=== PATIENT | female | born 1960 | race Caucasian/White ===

== ENCOUNTER 2020-06-07 09:32 | Observation (INO) ==
[2020-06-07 10:15] LABS: Basophils # 0.1 K/mcL (0.0-0.2); Basophils % 0.6 %; Eosinophils # 0.1 K/mcL (0.0-0.6); Eosinophils % 1.2 %; Hematocrit 34.3 % (35.3-44.9); Hemoglobin 10.9 g/dL (11.5-15.4); Immature Granulocytes % 0.5 % (0-4); Lymphocytes # 0.9 K/mcL (0.6-4.6); Lymphocytes % 7.2 %; Mean Corpuscular HGB Conc 31.8 g/dL (31.6-35.5); Mean Corpuscular Hemoglobin 30.2 pg (28.0-33.3); Mean Platelet Volume 10.9 fL (9.4-12.4); Monocytes # 1.2 K/mcL (0.0-1.3); Neutrophils # 9.7 K/mcL (1.6-8.9); Platelet Count 371 K/mcL (140-400); Red Blood Count 3.61 M/mcL (3.82-4.97); Segmented Neutrophils % 80.5 %; White Blood Count 12.1 K/mcL (4.3-11.1)
[2020-06-07 10:31] LABS: BUN/Creatinine Ratio 16 (6-26); Blood Urea Nitrogen 24 mg/dL (8-23); Calcium 8.4 mg/dL (8.6-10.3); Carbon Dioxide 23 mEq/L (23-29); Chloride 102 mEq/L (98-107); Glucose 115 mg/dL (70-105); Osmolality,Calculated 287 (280-300); Sodium 136 mEq/L (136-145); Troponin I < 0.03 ng/mL (< 0.04); eGFR For African Americans 42 (> 60); eGFR For Non-African Americans 34 (> 60)
[2020-06-07] MEDS ORDERED: Isovue-370 500 ML BOTTLE IVP ONE (10:37)
[2020-06-07] MEDS ORDERED: Ipratropium/Albuterol Neb 3 ML IH ONE (11:18)
[2020-06-07] MEDS ORDERED: 0.9 % Sodium Chloride 500 ML IVC ONE (12:34)
[2020-06-07] MEDS ORDERED: Furosemide 40 MG/4 ML VIAL IVP ONE (14:38)
[2020-06-07 14:58] LABS: Alanine Aminotransferase 67 Units/L (7-52); Albumin 4.1 g/dL (3.5-5.7); Albumin/Globulin Ratio 1.2 (1.1-2.2); Alkaline Phosphatase 257 Units/L (34-104); Aspartate Amino Transferase 62 Units/L (13-39); Bilirubin,Direct 0.3 mg/dL (0.0-0.2); Bilirubin,Indirect 0.6 mg/dL (0.0-1.0); Bilirubin,Total 0.9 mg/dL (0.3-1.0); Globulin 3.5 g/dL (2.4-3.5); Lipase 8 Units/L (11-82); Total Protein 7.6 g/dL (6.4-8.9)
[2020-06-07] MEDS ORDERED: *HR* HYDROcodone/Acet 5/325 mg TABLET PO PRN (15:27)
[2020-06-07] MEDS ORDERED: Ondansetron 4 MG/2 ML VIAL IVP PRN (15:27)
[2020-06-07] MEDS ORDERED: Naloxone 0.4 MG/ML INJ IVP PRN (15:27)
[2020-06-07] MEDS ORDERED: Ipratropium/Albuterol Neb 3 ML IH PRN (15:30)
[2020-06-07] MEDS ORDERED: Perflutren Lipid Microsphere 1.3 ML in 0.9 % Sodium Chloride 8.7 ML IVP PRN (16:38)
[2020-06-07 17:46] LABS: Adenovirus Not Detected (Not Detect); Bordetella Pertussis Not Detected (Not Detect); Chlamydophila pneumoniae Not Detected (Not Detect); Coronavirus 229E Not Detected (Not Detect); Coronavirus HKU1 Not Detected (Not Detect); Coronavirus NL63 Not Detected (Not Detect); Coronavirus OC43 Not Detected (Not Detect); Human Metapneumovirus Not Detected (Not Detect); Human Rhinovirus/Enterovirus Not Detected (Not Detect); Influenza A Subtype 2009 H1 Not Detected (Not Detect); Influenza B Not Detected (Not Detect); Mycoplasma pneumoniae Not Detected (Not Detect); Parainfluenza Virus 1 Not Detected (Not Detect); Parainfluenza Virus 2 Not Detected (Not Detect); Parainfluenza Virus 3 Not Detected (Not Detect); Parainfluenza Virus 4 Not Detected (Not Detect); Respiratory Syncytial Virus Not Detected (Not Detect); SARS-CoV-2 Not Detected (Not Detect)
[2020-06-07] MEDS: Acetaminophen 325 MG TABLET PO PRN (19:11)
[2020-06-07] MEDS: Furosemide 20 MG/2 ML VIAL IVP SCH (20:23)
[2020-06-07] MEDS ORDERED: Anastrozole 1 MG TABLET PO SCH (21:00)
[2020-06-08] MEDS: Acetaminophen 325 MG TABLET PO PRN (02:13)
[2020-06-08 06:41] VITALS: BP 155/67
[2020-06-08 07:10] LABS: Basophils # 0.1 K/mcL (0.0-0.2); Basophils % 0.7 %; Eosinophils # 0.4 K/mcL (0.0-0.6); Eosinophils % 3.5 %; Hemoglobin 10.9 g/dL (11.5-15.4); Immature Granulocytes % 0.4 % (0-4); Lymphocytes # 1.6 K/mcL (0.6-4.6); Lymphocytes % 14.6 %; Mean Corpuscular HGB Conc 32.1 g/dL (31.6-35.5); Mean Corpuscular Hemoglobin 30.4 pg (28.0-33.3); Mean Corpuscular Volume 94.7 fL (83.0-100.0); Mean Platelet Volume 11.3 fL (9.4-12.4); Monocytes # 1.9 K/mcL (0.0-1.3); Monocytes % 17.1 %; Platelet Count 367 K/mcL (140-400); Red Blood Count 3.59 M/mcL (3.82-4.97); Segmented Neutrophils % 63.7 %
[2020-06-08] MEDS: Furosemide 20 MG/2 ML VIAL IVP SCH (07:46)
[2020-06-08 07:57] LABS: Calcium 8.8 mg/dL (8.6-10.3); Magnesium 1.9 mg/dL (1.6-2.6); Phosphorous 4.4 mg/dL (2.7-4.5); Potassium 4.3 mEq/L (3.5-5.1)
[2020-06-08] MEDS ORDERED: ALPRAZolam 0.5 MG TABLET PO PRN (08:28)
[2020-06-08] MEDS ORDERED: Albumin 25% 25gram/100mL 25 GM/100 ML IV.SOLN IVPB ONE (08:29)
[2020-06-08] MEDS ORDERED: Aspirin Enteric Coated 81 MG Tablet PO SCH (09:00)
[2020-06-08] MEDS ORDERED: PARoxetine 20 MG TABLET PO SCH (09:00)
[2020-06-08] MEDS ORDERED: Metoprolol XL (24 HR) Succ 50 MG TAB.ER.24H PO SCH (09:00)
== END 2020-06-08 11:54 | disposition home or self-care (01) ==
LOC: EMEROOARM 09:32 → 3BNU 09:32 → SUATTDRO 15:51 → 3BNU 16:45
PROVIDERS: ADMIT Internal Medicine; ATTEND Internal Medicine

== ENCOUNTER 2020-07-12 06:21 | Observation (INO) ==
[2020-07-12] MEDS ORDERED: *HR* Atropine Sulfate 1 MG/10 ML SYRINGE IV ONE ×2 (06:22→15:43)
[2020-07-12] MEDS ORDERED: 0.9 % Sodium Chloride 1,000 ML ONE ×2 (07:00→07:10)
[2020-07-12] MEDS ORDERED: Heparin 1,000 UNITS/500 mL 500 ML ONE (07:10)
[2020-07-12] MEDS ORDERED: Nitroglycerin 1,000 MCG/5 ML VIAL IV ONE (07:10)
[2020-07-12] MEDS ORDERED: *HR* Heparin 10,000 UNIT/10 ML VIAL ONE (07:10)
[2020-07-12] MEDS ORDERED: ISOVUE-370 200 ML INFUS..BTL ONE (07:10)
[2020-07-12] MEDS ORDERED: *HR* FentaNYL (PF) 100 MCG/2 ML VIAL ONE (07:45)
[2020-07-12] MEDS ORDERED: *HR* Midazolam HCl 2 MG/2 ML VIAL ONE (07:45)
[2020-07-12] MEDS ORDERED: Naloxone 0.4 MG/ML INJ IVP PRN (14:13)
[2020-07-12] MEDS ORDERED: hydroCHLOROthiazide 25 MG TABLET PO PRN (14:17)
[2020-07-12] MEDS ORDERED: ALPRAZolam 0.5 MG TABLET PO PRN (14:17)
[2020-07-12] MEDS: Pantoprazole 40 MG VIAL IVP SCH (15:21)
[2020-07-12] MEDS ORDERED: GI Cocktail 40 ML EACH PO ONE (15:28)
[2020-07-12] MEDS ORDERED: *HR* EPINEPHrine 1 MG/10 ML SYRINGE IVP ONE (15:43)
[2020-07-12] MEDS: Anastrozole 1 MG TABLET PO SCH (17:23)
[2020-07-12 18:09] LABS: Basophils # 0.1 K/mcL (0.0-0.2); Basophils % 0.5 %; Eosinophils # 0.1 K/mcL (0.0-0.6); Eosinophils % 0.4 %; Hematocrit 36.5 % (35.3-44.9); Hemoglobin 11.3 g/dL (11.5-15.4); Immature Granulocytes % 0.2 % (0-4); Lymphocytes % 8.5 %; Mean Corpuscular Hemoglobin 30.3 pg (28.0-33.3); Mean Corpuscular Volume 97.9 fL (83.0-100.0); Mean Platelet Volume 11.7 fL (9.4-12.4); Monocytes # 0.9 K/mcL (0.0-1.3); Monocytes % 7.3 %; Platelet Count 316 K/mcL (140-400); Red Blood Count 3.73 M/mcL (3.82-4.97); Red Cell Distribution Width 15.8 % (11.5-14.5); Segmented Neutrophils % 83.1 %
[2020-07-12 18:30] LABS: Calcium 7.8 mg/dL (8.6-10.3); Potassium 5.2 mEq/L (3.5-5.1)
[2020-07-12 18:43] LABS: Thyroid Stimulating Hormone 13.436 mcIU/mL (0.340-5.600)
[2020-07-13 02:15] LABS: Basophils # 0.1 K/mcL (0.0-0.2); Basophils % 0.5 %; Eosinophils # 0.1 K/mcL (0.0-0.6); Hematocrit 35.2 % (35.3-44.9); Hemoglobin 11.1 g/dL (11.5-15.4); Immature Granulocytes % 0.2 % (0-4); Lymphocytes # 1.9 K/mcL (0.6-4.6); Lymphocytes % 15.3 %; Mean Corpuscular HGB Conc 31.5 g/dL (31.6-35.5); Mean Corpuscular Hemoglobin 30.7 pg (28.0-33.3); Mean Corpuscular Volume 97.5 fL (83.0-100.0); Mean Platelet Volume 12.3 fL (9.4-12.4); Monocytes # 1.2 K/mcL (0.0-1.3); Monocytes % 9.9 %; Neutrophils # 9.1 K/mcL (1.6-8.9); Platelet Count 313 K/mcL (140-400); Red Blood Count 3.61 M/mcL (3.82-4.97); Red Cell Distribution Width 15.8 % (11.5-14.5); Segmented Neutrophils % 73.1 %; White Blood Count 12.5 K/mcL (4.3-11.1)
[2020-07-13 02:34] LABS: Calcium 8.2 mg/dL (8.6-10.3)
[2020-07-13] MEDS: Cholecalciferol (D-3) 1,000 UNIT (25MCG) TABLET PO SCH (08:56)
[2020-07-13] MEDS: Aspirin Enteric Coated 81 MG Tablet PO SCH (08:57)
[2020-07-13] MEDS: PARoxetine 20 MG TABLET PO SCH (08:57)
[2020-07-13] MEDS: Cyanocobalamin (B-12) 1,000 MCG TABLET PO SCH (08:57)
[2020-07-13] MEDS: Pantoprazole 40 MG VIAL IVP SCH (08:57)
[2020-07-13] MEDS: Acetaminophen 325 MG TABLET PO PRN ×2 (10:44→16:32)
[2020-07-13] MEDS ORDERED: 0.9 % Sodium Chloride 1,000 ML ONE (11:25)
[2020-07-13] MEDS ORDERED: 0.9 % Sodium Chloride 500 ML ONE (11:25)
[2020-07-13] MEDS ORDERED: CeFAZolin Syr 2,000MG/20 ML 2,000 MG/20 ML SYRINGE IVPB ONE (12:00)
[2020-07-13] MEDS ORDERED: *HR* FentaNYL (PF) 100 MCG/2 ML VIAL ONE (12:36)
[2020-07-13] MEDS ORDERED: *HR* Midazolam HCl 5 MG/5 ML VIAL IVP ONE (12:36)
[2020-07-13] MEDS: Anastrozole 1 MG TABLET PO SCH (16:32)
[2020-07-14 01:18] LABS: BUN/Creatinine Ratio 21 (6-26); Blood Urea Nitrogen 31 mg/dL (8-23); Carbon Dioxide 26 mEq/L (23-29); Chloride 104 mEq/L (98-107); Potassium 4.7 mEq/L (3.5-5.1); Sodium 138 mEq/L (136-145); eGFR For African Americans 43 (> 60); eGFR For Non-African Americans 35 (> 60)
[2020-07-14] MEDS: Acetaminophen 325 MG TABLET PO PRN (03:38)
[2020-07-14] MEDS: Cyanocobalamin (B-12) 1,000 MCG TABLET PO SCH (08:34)
[2020-07-14] MEDS: PARoxetine 20 MG TABLET PO SCH (08:34)
[2020-07-14] MEDS: Cholecalciferol (D-3) 1,000 UNIT (25MCG) TABLET PO SCH (08:34)
[2020-07-14] MEDS: Pantoprazole 40 MG VIAL IVP SCH (08:34)
[2020-07-14] MEDS: Aspirin Enteric Coated 81 MG Tablet PO SCH (08:34)
[2020-07-14] MEDS ORDERED: Metoprolol XL (24 HR) Succ 50 MG TAB.ER.24H PO SCH ×2 (09:00→21:00)
[2020-07-14 09:22] VITALS: BP 168/86
[2020-07-14] MEDS ORDERED: Isosorbide MONOnitrate (24 HR) 30 MG TAB.ER.24H PO SCH (10:15)
[2020-07-15] MEDS ORDERED: Metoprolol XL (24 HR) Succ 50 MG TAB.ER.24H PO SCH (09:00)
== END 2020-07-14 12:10 | disposition home or self-care (01) ==
LOC: 2NNU 06:21 → INVDIALAB 06:21 → 2NNU 13:20 → SUATTDRO 15:42
PROVIDERS: ADMIT Internal Medicine; ATTEND Internal Medicine